=== PATIENT | female | born 1990 | race Caucasian/White ===

== ENCOUNTER 2019-04-13 01:30 | Inpatient (IN) | payer OTHER ==
[~2019-04-13] VITALS: Ht 154.9 cm; Wt 78.9 kg
[2019-04-13] MEDS ORDERED: CITRIC ACID/SODIUM CITRATE 30 ML SOLUTION UDCUP PO PRN (01:45)
[2019-04-13] MEDS ORDERED: METOCLOPRAMIDE HCL 5 MG/ML 2 ML VIAL IVP PRN (01:45)
[2019-04-13] MEDS ORDERED: OXYTOCIN 20 UNITS/LACT RINGERS 1,000 ML IV ONE (01:45)
[2019-04-13] MEDS ORDERED: LIDOCAINE/PF 1% 30 ML VIAL INJ PRN (01:45)
[2019-04-13] MEDS ORDERED: TERBUTALINE SULFATE 1 MG/ML VIAL SQ PRN (01:45)
[2019-04-13] MEDS: RINGERS SOLUTION,LACTATED 1,000 ML IV SCH ×6 (01:45→21:28)
[2019-04-13 02:28] VITALS: BP 100/65
[2019-04-13 02:43] LABS: BASOPHILS % (AUTO) 0.2 % (0.0-2.0); EOSINOPHILS % (AUTO) 0.6 % (1.0-6.0); HEMATOCRIT 36.3 % (36-46); HEMOGLOBIN 12.6 g/dL (12.0-16.0); LYMPHOCYTES # (AUTO) 1.1 K/uL (1.0-4.8); MEAN CORPUSCULAR HEMOGLOBIN 30.6 pg (26.0-34.0); MEAN CORPUSCULAR HGB CONC 34.7 G/dL (31.0-37.0); MEAN CORPUSCULAR VOLUME 88 fL (80-100); MONOCYTES # (AUTO) 0.5 K/uL (0.1-1.0); MONOCYTES % (AUTO) 6.4 % (2.0-9.0); NEUTROPHILS % (AUTO) 78.8 % (40.0-70.0); PLATELET COUNT (AUTO)-OB 204 K/uL (150-450); RED BLOOD CELL COUNT(AUTO) 4.12 MIL/uL (4.00-5.20); RED CELL DISTRIBUTION WIDTH 16.2 % (11.5-14.5)
[2019-04-13] MEDS ORDERED: [UNRECOGNIZED DRUG - OTHER] PO (03:04)
[2019-04-13] MEDS ORDERED: MISOPROSTOL 25 MCG TABLET VG SCH (03:15)
[2019-04-13] MEDS ORDERED: INFLUENZA VIRUS VACCINE QVS 2019-20 (3YR+)/PF 60 MCG/0.5 ML SYRINGE IM ONE (03:15)
[2019-04-13] MEDS ORDERED: ROPIVACAINE HCL/PF 0.2% 100 ML ED ONE ×2 (07:36→15:23)
[2019-04-13] MEDS ORDERED: OXYTOCIN 30 UNITS/LACT RINGERS 500 ML IV PRN (11:37)
[2019-04-13] MEDS ORDERED: PREN-217 PO (11:41)
[2019-04-13] MEDS ORDERED: MINERAL OIL 30 ML UDCUP VG ONE (22:00)
[2019-04-13] MEDS ORDERED: ROPIVACAINE HCL/PF 0.2% 100 ML ED PRN (22:34)
[2019-04-13] MEDS ORDERED: NALBUPHINE HCL 10 MG/ML VIAL IVP PRN (22:45)
[2019-04-13] MEDS ORDERED: DiphenhydrAMINE HCL 50 MG/ML VIAL IVP PRN (22:45)
[2019-04-13] MEDS ORDERED: ONDANSETRON HCL 4 MG/2 ML VIAL IVP PRN (22:45)
[2019-04-14] MEDS ORDERED: BUPIVACAINE HCL/PF 0.25% 10 ML VIAL ONE (00:50)
[2019-04-14] MEDS ORDERED: OXYTOCIN 30 UNITS/LACT RINGERS 500 ML IV ONE (04:21)
[2019-04-14] MEDS ORDERED: BENZOCAINE 20%/MENTHOL 56 GM SPRAY CANISTER TP PRN (04:30)
[2019-04-14] MEDS ORDERED: OxyCODONE HCL/ACETAMINOPHEN 5-325 MG TABLET PO PRN (04:30)
[2019-04-14] MEDS ORDERED: LIDOCAINE/PF 1% 30 ML VIAL INJ PRN (04:30)
[2019-04-14] MEDS ORDERED: GLYCERIN/WITCH HAZEL LEAF 40 PADS JAR TP PRN (04:30)
[2019-04-14] MEDS ORDERED: LANOLIN 7 GM OINTMENT TP PRN (04:30)
[2019-04-14] MEDS: IBUPROFEN 800 MG TABLET PO PRN ×3 (05:16→18:20)
[2019-04-14] MEDS: MAGNESIUM HYDROXIDE SUSPENSION 30 ML UDCUP PO PRN ×2 (11:47→21:02)
[2019-04-14] MEDS: OxyCODONE HCL/ACETAMINOPHEN 5-325 MG TABLET PO PRN ×2 (13:28→16:54)
[2019-04-15] MEDS: IBUPROFEN 800 MG TABLET PO PRN ×2 (03:03→10:00)
[2019-04-15 06:54] LABS: BASOPHILS % (AUTO) 0.3 % (0.0-2.0); EOSINOPHILS % (AUTO) 0.9 % (1.0-6.0); HEMATOCRIT 26.7 % (36-46); HEMOGLOBIN 9.3 g/dL (12.0-16.0); LYMPHOCYTES # (AUTO) 1.5 K/uL (1.0-4.8); MEAN CORPUSCULAR HEMOGLOBIN 30.9 pg (26.0-34.0); MEAN CORPUSCULAR HGB CONC 34.6 G/dL (31.0-37.0); MEAN CORPUSCULAR VOLUME 89 fL (80-100); MONOCYTES # (AUTO) 0.6 K/uL (0.1-1.0); MONOCYTES % (AUTO) 5.7 % (2.0-9.0); NEUTROPHILS # (AUTO) 7.6 K/uL (1.8-7.7); NEUTROPHILS % (AUTO) 78.1 % (40.0-70.0); PLATELET COUNT (AUTO)-OB 178 K/uL (150-450); RED BLOOD CELL COUNT(AUTO) 2.99 MIL/uL (4.00-5.20); RED CELL DISTRIBUTION WIDTH 16.3 % (11.5-14.5)
[2019-04-15] MEDS ORDERED: IBUP-2071 PO (08:58)
[2019-04-15] MEDS ORDERED: DOCU-275 PO (09:00)
[2019-04-15] MEDS ORDERED: FERR-89 PO (09:01)
== END 2019-04-15 10:20 | disposition home or self-care (01) | DRG 807 ==
LOC: OBSVTOIN 01:30 → 4S 01:30
PROVIDERS: ADMIT Obstetrics & Gynecology; ATTEND Obstetrics & Gynecology
PROC: 10D07Z4 Extraction of Products of Conception, Mid Forceps, Via Natural or Artificial Opening (ICD-10-PCS; principal; 2019-04-14)
PROC: 0KQM0ZZ Repair Perineum Muscle, Open Approach (ICD-10-PCS; 2019-04-14)
PROC: 3E0R3BZ Introduction of Anesthetic Agent into Spinal Canal, Percutaneous Approach (ICD-10-PCS; 2019-04-14)
PROC: 00HU33Z Insertion of Infusion Device into Spinal Canal, Percutaneous Approach (ICD-10-PCS; 2019-04-14)
PROC: 3E02340 Introduction of Influenza Vaccine into Muscle, Percutaneous Approach (ICD-10-PCS; 2019-04-14)
DX: O69.81X0 Labor and delivery complicated by cord around neck, without compression, not applicable or unspecified (principal); Z37.0 Single live birth; O70.1 Second degree perineal laceration during delivery; O77.0 Labor and delivery complicated by meconium in amniotic fluid; O66.5 Attempted application of vacuum extractor and forceps; Z3A.40 40 weeks gestation of pregnancy; Z23 Encounter for immunization
CPT/HCPCS: 86850; 86900; 86901; 90686; J2590; J2795; J3490; J7120